=== PATIENT | male | born 1965 | race Caucasian/White ===

== ENCOUNTER 2016-03-17 11:23 | Emergency (ER) | payer BC ==
[~2016-03-17] VITALS: Ht 182.9 cm; Wt 122.7 kg
[2016-03-17 12:12] LABS: HEMATOCRIT 44.8 % (38.0-50.0); MCH 30.4 PG (29.0-34.0); MCHC 35.5 G/DL (30.0-36.0); MCV 85.7 FL (86-99); MEAN PLAT.VOLUME 9.6 uM^3 (9.0-12.4); PLATELET COUNT 235 K/uL (156-360); RBC DIS.WIDTH-CV 12.7 % (11.8-14.6); RBC DIS.WIDTH-SD 39.4 % (39-53); RED BLOOD COUNT 5.23 M/uL (4.00-5.50); WHITE BLOOD COUNT 7.6 K/uL (4.1-10.2)
[2016-03-17 12:32] LABS: TROP-I INTERPRETATION NEGATIVE; TROPONIN-I < 0.01 ng/mL (0.0-0.30)
[2016-03-17 12:47] LABS: CHLORIDE 104 mEq/L (99-109); POTASSIUM 4.4 mEq/L (3.7-5.4); SODIUM 137 mEq/L (136-147)
[2016-03-17 12:48] LABS: GLUCOSE 286 mg/dL (70-99)
[2016-03-17 12:50] LABS: ANION GAP 11 MEQ/L (2-14)
[2016-03-17 12:53] LABS: UREA NITROGEN (BUN) 18 mg/dL (9-23)
[2016-03-17 12:55] LABS: GFR ESTIMATE (CALCULATED) 46 mL/min/
[2016-03-17 14:29] LABS: ADD MIUA? NO; BILIRUBIN NEGATIVE; BLOOD NEGATIVE; GLUCOSE (STRIP) >=1000; KETONES NEGATIVE; LEUKOCYTES NEGATIVE; NITRITE NEGATIVE; PROTEIN (STRIP) NEGATIVE; SPECIFIC GRAVITY 1.037 (1.000-1.030); UCUL ADDED? NO; UROBILINOGEN 0.2 MG/DL (0.2-1.0)
[2016-03-17 14:30] LABS: COLOR LT YELLOW ((YELLOW))
[2016-03-17 14:59] LABS: TOTAL BILIRUBIN 0.6 mg/dL (0.0-1.0)
[2016-03-17 15:00] LABS: ALKALINE PHOSPHATASE 53 IU/L (3-129)
[2016-03-17 15:03] LABS: DIRECT BILIRUBIN 0.2 mg/dL (0.0-0.3)
[2016-03-17 15:04] LABS: LIPASE 92 U/L (1.0-51.0)
[2016-03-17] MEDS ORDERED: OMEPRAZOLE40 M1 PO (15:44)
[2016-03-17 15:57] VITALS: BP 119/78
== END 2016-03-17 15:59 | disposition home or self-care (01) ==
LOC: EME 11:23 → RME 11:23
PROVIDERS: Physician Assistant
DX: J98.4 Other disorders of lung (principal); R10.13 Epigastric pain; R10.11 Right upper quadrant pain; I10 Essential (primary) hypertension; E78.5 Hyperlipidemia, unspecified; E11.9 Type 2 diabetes mellitus without complications; Z79.01 Long term (current) use of anticoagulants; Z79.4 Long term (current) use of insulin; Z87.891 Personal history of nicotine dependence
CPT/HCPCS: 71020; 74176; 80048; 80076; 81003; 83690; 84484; 85027; 93005; 99281; 99284; J7030

== ENCOUNTER 2016-05-30 01:17 | Emergency (ER) | payer BC ==
[~2016-05-30] VITALS: Ht 182.9 cm; Wt 120.2 kg
[~2016-05-30 01:17] MED LIST: BLOOD THINNER PO; ELIQUIS5 MG PO; FARXIGA5 MG PO; LIPITOR40 MG PO; LISINOPRIL10 MG PO; METFORMIN HCL1000 MG PO; METOPROLOL TART25 MG PO; OMEPRAZOLE40 M1 PO; PROPAFENONE HC225 MG PO; TRESIBA FL100 UNIT/1 SC; TRICOR145 MG PO; [UNRECOGNIZED DRUG - REMARK] SQ
[2016-05-30 01:47] LABS: HEMATOCRIT 53.3 % (38.0-50.0); MCH 29.4 PG (29.0-34.0); MCHC 33.8 G/DL (30.0-36.0); MCV 87.1 FL (86-99); MEAN PLAT.VOLUME 9.5 uM^3 (9.0-12.4); PLATELET COUNT 310 K/uL (156-360); RBC DIS.WIDTH-CV 12.6 % (11.8-14.6); RBC DIS.WIDTH-SD 39.8 % (39-53); RED BLOOD COUNT 6.12 M/uL (4.00-5.50); WHITE BLOOD COUNT 19.5 K/uL (4.1-10.2)
[2016-05-30 01:58] LABS: CHLORIDE 101 mEq/L (99-109); POTASSIUM 4.5 mEq/L (3.7-5.4); SODIUM 136 mEq/L (136-147)
[2016-05-30 02:00] LABS: GLUCOSE 283 mg/dL (70-99)
[2016-05-30 02:01] LABS: ANION GAP 13 MEQ/L (2-14)
[2016-05-30 02:02] LABS: TOTAL BILIRUBIN 0.6 mg/dL (0.0-1.0)
[2016-05-30 02:03] LABS: ALKALINE PHOSPHATASE 58 IU/L (3-129)
[2016-05-30 02:04] LABS: GFR ESTIMATE (CALCULATED) 53 mL/min/
[2016-05-30 02:05] LABS: UREA NITROGEN (BUN) 24 mg/dL (9-23)
[2016-05-30 02:07] LABS: LIPASE 53 U/L (1.0-51.0)
[2016-05-30 02:56] LABS: ADD MIUA? YES; BILIRUBIN NEGATIVE; BLOOD NEGATIVE; COLOR AMBER ((YELLOW)); GLUCOSE (STRIP) >=500; KETONES 5; LEUKOCYTES NEGATIVE; NITRITE NEGATIVE; PROTEIN (STRIP) 30; SPECIFIC GRAVITY 1.033 (1.000-1.030); UROBILINOGEN 0.2 MG/DL (0.2-1.0)
[2016-05-30 03:09] LABS: BACTERIA RARE /HPF; EPITHELIAL CELLS NONE SEEN /HPF; MUCUS 3+ /LPF; RED BLOOD CELLS 0-5 /HPF (0-5); UCUL ADDED? NO; WHITE BLOOD CELLS 0-5 /HPF (0-5)
[2016-05-30] MEDS ORDERED: ZOFRAN4 MG PO (03:23)
[2016-05-30 03:53] VITALS: BP 98/61
== END 2016-05-30 03:54 | disposition home or self-care (01) ==
LOC: EME 01:17
DX: K52.9 Noninfective gastroenteritis and colitis, unspecified (principal); E86.0 Dehydration; R00.0 Tachycardia, unspecified; I10 Essential (primary) hypertension; E78.5 Hyperlipidemia, unspecified; Z87.442 Personal history of urinary calculi; Z79.4 Long term (current) use of insulin; Z79.01 Long term (current) use of anticoagulants; Z87.891 Personal history of nicotine dependence
CPT/HCPCS: 74176; 80053; 81003; 83690; 85027; 93005; 99281; 99285; J1885; J2270; J7030

== ENCOUNTER 2016-07-05 09:26 | Emergency (ER) | payer BC ==
[~2016-07-05] VITALS: Ht 182.9 cm; Wt 118.0 kg
[~2016-07-05 09:26] MED LIST changes: +ZOFRAN4 MG PO
[2016-07-05 10:56] LABS: BASOPHIL COUNT 0.1 K/uL (0-0.1); EOSINOPHIL (%) 3.1 % (0-5); EOSINOPHIL COUNT 0.3 K/uL (0-0.3); HEMATOCRIT 51.1 % (38.0-50.0); IMMATURE GRANULOCYTE (%) 0.2 % (0.0-0.7); INSTRUMENT ABS NEUTROPHIL CT 5.1 K/uL; LYMPHOCYTE COUNT 2.2 K/uL (1.0-2.8); MCH 29.4 PG (29.0-34.0); MCHC 33.9 G/DL (30.0-36.0); MCV 86.9 FL (86-99); MEAN PLAT.VOLUME 9.5 uM^3 (9.0-12.4); MONOCYTE (%) 8.3 % (3-12); MONOCYTE COUNT 0.7 K/uL (0-0.8); NEUTROPHIL (%) 61.2 % (45-76); NEUTROPHIL COUNT 5.1 K/uL (1.8-6.4); PLATELET COUNT 310 K/uL (156-360); RBC DIS.WIDTH-CV 12.8 % (11.8-14.6); RBC DIS.WIDTH-SD 40.7 % (39-53); RED BLOOD COUNT 5.88 M/uL (4.00-5.50); WHITE BLOOD COUNT 8.4 K/uL (4.1-10.2)
[2016-07-05 11:05] LABS: CHLORIDE 104 mEq/L (99-109); POTASSIUM 4.8 mEq/L (3.7-5.4); SODIUM 136 mEq/L (136-147)
[2016-07-05 11:07] LABS: GLUCOSE 252 mg/dL (70-99)
[2016-07-05 11:08] LABS: INTER. NORMALIZED RATIO 1.1; PROTHROMBIN TIME 10.7 (9.2-11.2); PTT 29.7 (25-32)
[2016-07-05 11:09] LABS: ANION GAP 12 MEQ/L (2-14)
[2016-07-05 11:11] LABS: GFR ESTIMATE (CALCULATED) > 59 mL/min/
[2016-07-05 11:12] LABS: UREA NITROGEN (BUN) 14 mg/dL (9-23)
[2016-07-05 11:17] LABS: TROP-I INTERPRETATION NEGATIVE; TROPONIN-I < 0.01 ng/mL (0.0-0.30)
[2016-07-05 11:40] VITALS: BP 100/80
[2016-07-09] MEDS ORDERED: CIALIS20 MG PO (09:01)
== END 2016-07-05 12:01 | disposition home or self-care (01) ==
LOC: EME 09:26
PROVIDERS: Emergency Medicine
DX: I48.91 Unspecified atrial fibrillation (principal); Z79.01 Long term (current) use of anticoagulants; R06.02 Shortness of breath; I10 Essential (primary) hypertension; E78.5 Hyperlipidemia, unspecified; E11.9 Type 2 diabetes mellitus without complications; Z79.4 Long term (current) use of insulin; Z87.891 Personal history of nicotine dependence
CPT/HCPCS: 71010; 80048; 83880; 84484; 85025; 85610; 85730; 93005; 99281; 99284

== ENCOUNTER → 2016-07-10 | Outpatient (CLI) | payer BC ==
[~2016-07-10] VITALS: Ht 182.9 cm; Wt 117.9 kg
[~2016-07-10] MED LIST changes: +CIALIS20 MG PO
[2016-07-10 08:57] LABS: POINT-OF-CARE METER ID UU13113694; POINT-OF-CARE USER ID AHSRSCSLC11
== END | disposition home or self-care (01) ==
LOC: AMB 08:29
PROVIDERS: Internal Medicine
DX: K29.80 Duodenitis without bleeding (principal); K26.9 Duodenal ulcer, unspecified as acute or chronic, without hemorrhage or perforation; K29.70 Gastritis, unspecified, without bleeding; K31.89 Other diseases of stomach and duodenum; R10.13 Epigastric pain; R10.11 Right upper quadrant pain; R11.0 Nausea; I48.91 Unspecified atrial fibrillation; I10 Essential (primary) hypertension; Z79.01 Long term (current) use of anticoagulants; E78.5 Hyperlipidemia, unspecified; Z68.35 Body mass index [BMI] 35.0-35.9, adult; Z87.891 Personal history of nicotine dependence; E11.9 Type 2 diabetes mellitus without complications; Z79.84 Long term (current) use of oral hypoglycemic drugs; Z88.8 Allergy status to other drugs, medicaments and biological substances
CPT/HCPCS: 82948; 88305; 88342 TC; J2250; J3010

== ENCOUNTER 2016-10-14 17:05 | Emergency (ER) | payer BC ==
[~2016-10-14] VITALS: Ht 182.9 cm; Wt 119.6 kg
[2016-10-14 19:32] LABS: ADD MIUA? NO; BILIRUBIN NEGATIVE; BLOOD NEGATIVE; COLOR YELLOW ((YELLOW)); GLUCOSE (STRIP) >=500; KETONES NEGATIVE; LEUKOCYTES NEGATIVE; NITRITE NEGATIVE; PROTEIN (STRIP) NEGATIVE; SPECIFIC GRAVITY 1.039 (1.000-1.030); UCUL ADDED? NO; UROBILINOGEN 0.2 MG/DL (0.2-1.0)
[2016-10-14 19:42] LABS: MCH 28.8 PG (29.0-34.0); MCHC 33.8 G/DL (30.0-36.0); MCV 85.2 FL (86-99); MEAN PLAT.VOLUME 9.6 uM^3 (9.0-12.4); PLATELET COUNT 280 K/uL (156-360); RBC DIS.WIDTH-CV 12.7 % (11.8-14.6); RBC DIS.WIDTH-SD 39.5 % (39-53); RED BLOOD COUNT 5.87 M/uL (4.00-5.50); WHITE BLOOD COUNT 19.4 K/uL (4.1-10.2)
[2016-10-14 19:51] LABS: CHLORIDE 105 mEq/L (99-109); POTASSIUM 4.1 mEq/L (3.7-5.4); SODIUM 136 mEq/L (136-147)
[2016-10-14 19:53] LABS: GLUCOSE 140 mg/dL (70-99)
[2016-10-14 19:54] LABS: ANION GAP 11 MEQ/L (2-14)
[2016-10-14 19:55] LABS: TOTAL BILIRUBIN 0.7 mg/dL (0.0-1.0)
[2016-10-14 19:56] LABS: ALKALINE PHOSPHATASE 61 IU/L (3-129)
[2016-10-14 19:57] LABS: GFR ESTIMATE (CALCULATED) > 59 mL/min/
[2016-10-14 19:58] LABS: UREA NITROGEN (BUN) 21 mg/dL (9-23)
[2016-10-14 20:00] LABS: LIPASE 58 U/L (1.0-51.0)
[2016-10-14 21:02] LABS: AMYLASE 65 IU/L (1-118)
[2016-10-14] MEDS ORDERED: FLAGYL500 MG PO (21:30)
[2016-10-14] MEDS ORDERED: CIPRO500 MG PO (21:30)
[2016-10-14 21:58] VITALS: BP 128/80
== END 2016-10-15 02:46 | disposition home or self-care (01) ==
LOC: EME 17:05
PROVIDERS: Nurse Practitioner Family
DX: R10.11 Right upper quadrant pain (principal); R19.7 Diarrhea, unspecified; D72.829 Elevated white blood cell count, unspecified; E78.5 Hyperlipidemia, unspecified; E11.9 Type 2 diabetes mellitus without complications; L40.9 Psoriasis, unspecified; G47.30 Sleep apnea, unspecified; Z87.442 Personal history of urinary calculi; Z79.84 Long term (current) use of oral hypoglycemic drugs; Z87.891 Personal history of nicotine dependence
CPT/HCPCS: 74177; 80053; 81003; 82150; 83690; 85027; 93005; 99281; 99284; J1885; J2405; J7030

== ENCOUNTER 2017-02-22 12:54 | Emergency (ER) | payer BC ==
[~2017-02-22] VITALS: Ht 182.9 cm; Wt 121.2 kg
[~2017-02-22 12:54] MED LIST changes: +CIPRO500 MG PO; +FLAGYL500 MG PO
[2017-02-22 13:42] LABS: MCH 29.8 PG (29.0-34.0); MCV 87.7 FL (86-99); MEAN PLAT.VOLUME 9.6 uM^3 (9.0-12.4); PLATELET COUNT 275 K/uL (156-360); RBC DIS.WIDTH-CV 12.8 % (11.8-14.6); RBC DIS.WIDTH-SD 41.1 % (39-53); WHITE BLOOD COUNT 14.9 K/uL (4.1-10.2)
[2017-02-22 13:52] LABS: CHLORIDE 105 mEq/L (99-109); POTASSIUM 4.1 mEq/L (3.7-5.4); SODIUM 139 mEq/L (136-147)
[2017-02-22 13:54] LABS: GLUCOSE 196 mg/dL (70-99)
[2017-02-22 13:55] LABS: ANION GAP 12 MEQ/L (2-14)
[2017-02-22 13:56] LABS: TOTAL BILIRUBIN 0.7 mg/dL (0.0-1.0)
[2017-02-22 13:57] LABS: ALKALINE PHOSPHATASE 65 IU/L (3-129)
[2017-02-22 13:58] LABS: GFR ESTIMATE (CALCULATED) > 59 mL/min/ (58.99-99999)
[2017-02-22 13:59] LABS: UREA NITROGEN (BUN) 17 mg/dL (9-23)
[2017-02-22 14:13] LABS: ADD MIUA? YES; BILIRUBIN NEGATIVE; BLOOD NEGATIVE; COLOR AMBER ((YELLOW)); GLUCOSE (STRIP) >=500; KETONES NEGATIVE; LEUKOCYTES NEGATIVE; NITRITE NEGATIVE; PROTEIN (STRIP) NEGATIVE; UROBILINOGEN 0.2 MG/DL (0.2-1.0)
[2017-02-22 14:29] LABS: CRYSTALS PRESENT; UCUL ADDED? YES
[2017-02-22 15:42] LABS: TROP-I INTERPRETATION NEGATIVE; TROPONIN-I < 0.01 ng/mL (0.0-0.30)
[2017-02-22] MEDS ORDERED: ZOFRAN ODT4 MG PO (15:46)
[2017-02-22 16:59] VITALS: BP 127/76
== END 2017-02-22 17:25 | disposition home or self-care (01) ==
LOC: EME 12:54
DX: E86.0 Dehydration (principal); R10.84 Generalized abdominal pain; R11.0 Nausea; T36.0X5A Adverse effect of penicillins, initial encounter; J32.9 Chronic sinusitis, unspecified; I48.91 Unspecified atrial fibrillation; E11.9 Type 2 diabetes mellitus without complications; Z79.84 Long term (current) use of oral hypoglycemic drugs; E78.5 Hyperlipidemia, unspecified; G47.30 Sleep apnea, unspecified; Z88.5 Allergy status to narcotic agent; Z87.891 Personal history of nicotine dependence; Z87.442 Personal history of urinary calculi
CPT/HCPCS: 71020; 80053; 81003; 84484; 85027; 87086; 93005; 99281; 99284; J7030

== ENCOUNTER 2017-04-29 08:03 | Emergency (ER) | payer BC ==
[~2017-04-29] VITALS: Ht 180.3 cm; Wt 120.3 kg
[~2017-04-29 08:03] MED LIST changes: +ZOFRAN ODT4 MG PO
[2017-04-29 08:48] LABS: HEMATOCRIT 52.3 % (38.0-50.0); HEMOGLOBIN 18.2 G/DL (12.5-16.6); MCH 30.5 PG (29.0-34.0); MCHC 34.8 G/DL (30.0-36.0); MCV 87.6 FL (86-99); PLATELET COUNT 293 K/uL (156-360); RBC DIS.WIDTH-CV 12.8 % (11.8-14.6); RBC DIS.WIDTH-SD 41.1 % (39-53); RED BLOOD COUNT 5.97 M/uL (4.00-5.50)
[2017-04-29 09:01] LABS: ALBUMIN 4.9 g/dL (3.2-4.8)
[2017-04-29 09:02] LABS: CHLORIDE 104 mEq/L (99-109); POTASSIUM 4.3 mEq/L (3.7-5.4); SODIUM 136 mEq/L (136-147)
[2017-04-29 09:04] LABS: GLUCOSE 201 mg/dL (70-99); TOTAL PROTEIN 8.6 g/dL (6.4-8.3)
[2017-04-29 09:06] LABS: TOTAL BILIRUBIN 0.7 mg/dL (0.0-1.0)
[2017-04-29 09:07] LABS: ALKALINE PHOSPHATASE 74 IU/L (3-129)
[2017-04-29 09:08] LABS: CREATININE 1.3 mg/dL (0.6-1.3); GFR ESTIMATE (CALCULATED) > 59 mL/min/ (58.99-99999)
[2017-04-29 09:09] LABS: AST (GOT) 45 IU/L (2-34); UREA NITROGEN (BUN) 18 mg/dL (9-23)
[2017-04-29 09:10] LABS: ALT (GPT) 79 IU/L (3-49)
[2017-04-29 10:18] LABS: TROP-I INTERPRETATION NEGATIVE; TROPONIN-I < 0.01 ng/mL (0.0-0.30)
[2017-04-29 10:26] LABS: APPEARANCE SL.HAZY ((CLEAR)); BILIRUBIN NEGATIVE; BLOOD NEGATIVE; COLOR YELLOW ((YELLOW)); GLUCOSE (STRIP) >=500; KETONES NEGATIVE; LEUKOCYTES NEGATIVE; NITRITE NEGATIVE; PROTEIN (STRIP) 30; UROBILINOGEN 0.2 MG/DL (0.2-1.0)
[2017-04-29 10:43] LABS: BACTERIA 1+ /HPF; EPITHELIAL CELLS 1+ /HPF; MUCUS TRACE /LPF; UCUL ADDED? NO; WHITE BLOOD CELLS 0-5 /HPF (0-5)
[2017-04-29 11:52] LABS: C DIFF TOXIN NEGATIVE (NEGATIVE)
[2017-04-29] MEDS ORDERED: IMODIUM A-D2 M2 PO (13:13)
[2017-04-29] MEDS ORDERED: FLAGYL500 MG PO (13:13)
[2017-04-29 13:34] VITALS: BP 110/58
== END 2017-04-29 13:39 | disposition home or self-care (01) ==
LOC: EME 08:03
PROVIDERS: Emergency Medicine
DX: R10.30 Lower abdominal pain, unspecified (principal); R19.7 Diarrhea, unspecified; D72.829 Elevated white blood cell count, unspecified; I48.91 Unspecified atrial fibrillation; E11.9 Type 2 diabetes mellitus without complications; Z79.84 Long term (current) use of oral hypoglycemic drugs; Z79.01 Long term (current) use of anticoagulants; E78.5 Hyperlipidemia, unspecified; I10 Essential (primary) hypertension; K21.9 Gastro-esophageal reflux disease without esophagitis; G47.30 Sleep apnea, unspecified; Z87.442 Personal history of urinary calculi; Z88.5 Allergy status to narcotic agent; Z87.891 Personal history of nicotine dependence
CPT/HCPCS: 71046; 74177; 80053; 81003; 83880; 84484; 85027; 87493; 93005; 99281; 99285; J2405; J7030